=== PATIENT | female | born 1940 | race Caucasian/White ===

== ENCOUNTER 2019-01-27 12:51 | Emergency (ER) | payer MEDICARE, OTHER ==
[2019-01-27] MEDS ORDERED: methylPREDNISolone Sod Succ/PF 125 MG/2 ML VIAL ONE (13:48)
== END 2019-01-27 14:10 | disposition home or self-care (01) ==
LOC: NAV ERS 12:51
DX: S39.012A Strain of muscle, fascia and tendon of lower back, initial encounter (principal); E11.9 Type 2 diabetes mellitus without complications; Z87.891 Personal history of nicotine dependence; X50.1XXA Overexertion from prolonged static or awkward postures, initial encounter
CPT/HCPCS: 96372; 99283; J2930

== ENCOUNTER 2019-03-18 14:53 | Emergency (ER) | payer MEDICARE, OTHER | END 2019-03-18 15:37 | disposition home or self-care (01) | LOC: NAV ERS 14:53 | DX: J06.9 Acute upper respiratory infection, unspecified (principal); E11.9 Type 2 diabetes mellitus without complications; E78.5 Hyperlipidemia, unspecified; H35.3220 Exudative age-related macular degeneration, left eye, stage unspecified; Z87.891 Personal history of nicotine dependence | CPT/HCPCS: 94664 ==

== ENCOUNTER 2020-12-10 13:50 | Emergency (ER) | payer MEDICARE, BC, OTHER ==
[2020-12-11 23:59] LABS: SARS-CoV-2 PCR by NAA Not Detected (NotDetected)
== END 2020-12-10 14:18 | disposition home or self-care (01) ==
LOC: EDBD 13:50 → NAV ERS 13:50
DX: Z20.822 Contact with and (suspected) exposure to COVID-19 (principal); E11.9 Type 2 diabetes mellitus without complications; E78.5 Hyperlipidemia, unspecified; Z87.891 Personal history of nicotine dependence
CPT/HCPCS: 99283; U0003; U0005